=== PATIENT | male | born 1960 | race African-American/Black ===

== ENCOUNTER 2020-06-26 01:06 | Emergency (ER) | payer MEDICAID ==
[~2020-06-26] VITALS: Ht 175.3 cm; Wt 79.4 kg
[2020-06-26 04:08] VITALS: BP 146/81
== END 2020-06-26 04:34 | disposition home or self-care (01) ==
LOC: ER 01:10
DX: S10.11XA Abrasion of throat, initial encounter (principal); X58.XXXA Exposure to other specified factors, initial encounter; Y93.89 Activity, other specified; Y99.8 Other external cause status; Y92.89 Other specified places as the place of occurrence of the external cause